=== PATIENT | male | born 1955 | race African-American/Black ===

== ENCOUNTER 2023-10-28 15:40 | Emergency (ER) | payer MEDICARE, MEDICAID ==
[~2023-10-28] VITALS: Ht 172.7 cm; Wt 79.0 kg
[2023-10-28 15:51] VITALS: BP 153/81; PULSE 90; RESP 16; TEMP 98.8; O2SAT 98
[2023-10-28 17:51] LABS: BASOPHILS % 0.5 % (0.0-2.0); EOSINOPHILS % 2.7 % (0.0-5.0); HEMOGLOBIN. 11.2 g/dL (14.0-18.0); LYMPHOCYTES % 19.7 % (20.0-50.0); MEAN CORPUSCULAR HEMOGLOBIN 34.1 pg (28.0-32.0); MEAN CORPUSCULAR HGB CONC 35.1 g/dL (31.0-37.0); MEAN CORPUSCULAR VOLUME 97.1 fL (80.0-94.0); MEAN PLATELET VOLUME 5.9 fl (7.4-10.4); MONOCYTES % 13.5 % (2.0-8.0); NEUTROPHILS % 63.6 % (40.0-76.0); PLATELET 504 x1000/uL (130-400); RED BLOOD CELL COUNT 3.29 mill/uL (4.7-6.1); RED CELL DISTRIBUTION WIDTH 12.5 % (11.6-14.6); WHITE BLOOD COUNT 5.2 x1000/uL (4.5-11.0)
[2023-10-28 17:56] LABS: CARBON DIOXIDE 27 mEq/L (21-32); CHLORIDE 106 mEq/L (98-107); SODIUM 139 mEq/L (136-145)
[2023-10-28 18:01] LABS: INR 1.1; PARTIAL THROMBOPLASTIN TIME 26.2 sec (23.4-31.0); PROTHROMBIN TIME 12.6 sec (9.6-11.0)
[2023-10-28 18:02] LABS: GLUCOSE 110 mg/dL (70-105); UREA NITROGEN BLOOD 10 mg/dL (9-23)
[2023-10-28 18:03] LABS: ALANINE AMINOTRANSFERASE 14 IU/L (10-49); ALBUMIN 4.4 g/dL (3.2-4.8); ASPARTATE AMINOTRANSFERASE 17 IU/L (<34)
[2023-10-28 18:04] LABS: BILIRUBIN DIRECT 0.1 mg/dL (<=3.0); BILIRUBIN TOTAL 0.3 mg/dL (0.1-1.0); PROTEIN TOTAL 8.1 g/dL (6.0-8.3)
[2023-10-28 18:19] LABS: ETHANOL BLOOD < 10 mg/dL (<10)
[2023-10-28] MEDS ORDERED: METRONIDAZOLE 500 MG PREMIX 100 ML IV ONE (19:00)
[2023-10-28] MEDS ORDERED: MORPHINE SULFATE 4 MG/ML INJ (FOR IV/IM USE) IV ONE (19:00)
[2023-10-28] MEDS ORDERED: SODIUM CHLORIDE 0.9% 1,000 ML IV ONE (19:00)
[2023-10-28] MEDS ORDERED: CEFTRIAXONE 1GM/50ML 50 ML IV ONE (19:00)
== END 2023-10-28 18:59 | disposition left against medical advice (07) ==
LOC: ER 15:40
DX: K92.2 Gastrointestinal hemorrhage, unspecified (principal); K52.9 Noninfective gastroenteritis and colitis, unspecified; J44.1 Chronic obstructive pulmonary disease with (acute) exacerbation; I10 Essential (primary) hypertension
CPT/HCPCS: 36415; 74176; 80048; 80076; 80320; 83735; 84100; 85025; 86850; 86900; 99284; J7030; G0480